=== PATIENT | male | born 1980 | race Caucasian/White ===

== ENCOUNTER 2016-08-17 00:27 | Emergency (ER) | payer OTHER, BC ==
[~2016-08-17] VITALS: Ht 193 cm; Wt 117.9 kg
[~2016-08-17 00:27] MED LIST: CLARITIN10 MG PO; CLONAZEPAM0.5 MG PO; IBU800 MG PO; MOTRIN800 MG PO; ZITHROMAX Z PA250 MG PO
[2016-08-17 01:16] LABS: BASO # 0.1 10*3/uL (0.0-0.1); BASO % 0.6 % (0.0-1.0); EOS # 0.1 10*3/uL (0.0-0.4); EOS % 1.2 % (1.0-4.0); HEMATOCRIT 45.5 % (42.0-52.0); HEMOGLOBIN 15.2 g/dl (14.0-18.0); LYMPH # 2.4 10*3/uL (1.3-4.4); LYMPH % 29.8 % (27.0-41.0); MEAN CELL VOLUME 87.8 fl (80.0-94.0); MEAN CORPUSCULAR HGB 29.3 pg (27.0-31.0); MEAN CORPUSCULAR HGB CONC 33.4 g/dl (33.0-37.0); MEAN PLATELET VOLUME 11.8 fl (9.6-12.3); MONO # 0.6 10*3/uL (0.1-1.0); MONO % 7.5 % (3.0-9.0); NEUT # 4.9 10*3/uL (2.3-7.9); NEUT % 60.7 % (47.0-73.0); PLATELET COUNT AUTOMATED 180 10*3/uL (130-400); RED BLOOD COUNT 5.18 10*6/uL (4.50-5.90); RED CELL DISTRI WIDTH 12.6 % (0-14.5); WHITE BLOOD COUNT 8.1 10*3/uL (4.8-10.8)
[2016-08-17 01:32] LABS: BUN 11 mg/dl (7-24); CARBON DIOXIDE 30 mmol/L (21-32); CHLORIDE 106 mmol/L (98-107); EST GLOM FILT AFRICAN AMERICAN > 60 ml/min; GLUCOSE 99 mg/dL (65-99); SODIUM 144 mmol/L (136-145)
[2016-08-17 01:33] LABS: URINE AMPHETAMINES < 1000 (1000ng/ml); URINE BARBITURATES < 200 (200ng/ml); URINE COCAINE < 300 (300ng/ml)
[2016-08-17 01:39] LABS: TROPONIN I < 0.015 ng/ml (<0.045)
== END 2016-08-17 02:20 | disposition home or self-care (01) ==
LOC: ED 00:27
PROVIDERS: Emergency Medicine Emergency Medical Services
DX: Z77.29 Contact with and (suspected) exposure to other hazardous substances (principal)

== ENCOUNTER 2018-03-24 22:21 | Emergency (ER) | payer BC ==
--- NOTE | ~2018-03-24 | EKG ---
[place], [place] ELECTROCARDIOGRAM REPORT NAME: TONI STEWART UNIT #: [id number] ROOM: DOCTOR: EPIPHANY DRAFT REPORT BIRTHDATE: [address] [facility] Test Date: 2018-03-24 Test Time: 22:22:44 Pat Name: TONI STEWART Department: ED Room: 5 Gender: M [employer] Technician: Georgia Knight : 1980 Requested By: DELIA METZ Order Number: [id number] Reading MD: Jt Mcdaniel MD Measurements Intervals [place] Rate: 75 P: 65 MS: 186 QRS: 46 QRSD: 107 T: 31 QT: 388 QTc: 434 Interpretive Statements Sinus rhythm Probable left atrial enlargement Baseline wander in lead(s) V3 Electronically Signed On 03-25-2018 15:24:17 PST by Jt Mcdaniel MD CM:EKGRPT:ELECTROCARDIOGRAM REPORT 1524 DELIA RAZA DRAFT REPORT DELAI METZ DO
--- NOTE | ~2018-03-24 | EKG ---
[place], [place] ELECTROCARDIOGRAM REPORT NAME: TONI STEWART UNIT #: [id number] ROOM: DOCTOR: EPIPHANY DRAFT REPORT BIRTHDATE: [birth year] [facility] Test Date: 2018-03-25 Test Time: 01:12:42 Pat Name: TONI STEWART Department: ED Room: 5 Gender: M Cpr Instructor: Georgia Knight : 1980 Requested By: DELIA METZ Order Number: [id number] Reading MD: Jt Mcdaniel MD Measurements Intervals [place] Rate: 60 P: 42 AL: 195 QRS: 7 QRSD: 96 T: 36 QT: 415 QTc: 415 Interpretive Statements Sinus rhythm Low voltage, precordial leads Compared to 03/24/2018 No significant change Electronically Signed On 03-25-2018 15:28:26 PST by Jt Mcdaniel MD CM:EKGRPT:ELECTROCARDIOGRAM REPORT [id number] 1528 DELIA RAZA DRAFT REPORT DELIA METZ DO
[2018-03-24 23:02] LABS: BASO # 0.1 10*3/uL (0.0-0.1); BASO % 0.7 % (0.0-1.0); EOS # 0.2 10*3/uL (0.0-0.4); EOS % 2.7 % (1.0-4.0); HEMATOCRIT 43.1 % (42.0-52.0); HEMOGLOBIN 14.8 g/dl (14.0-18.0); LYMPH # 2.7 10*3/uL (1.3-4.4); LYMPH % 32.8 % (27.0-41.0); MEAN CORPUSCULAR HGB 30.6 pg (27.0-31.0); MEAN CORPUSCULAR HGB CONC 34.3 g/dl (33.0-37.0); MEAN PLATELET VOLUME 11.4 fl (9.6-12.3); MONO # 0.6 10*3/uL (0.1-1.0); MONO % 7.3 % (3.0-9.0); NEUT # 4.6 10*3/uL (2.3-7.9); NEUT % 56.3 % (47.0-73.0); PLATELET COUNT AUTOMATED 203 10*3/uL (130-400); RED BLOOD COUNT 4.84 10*6/uL (4.50-5.90); RED CELL DISTRI WIDTH 12.8 % (0-14.5); WHITE BLOOD COUNT 8.2 10*3/uL (4.8-10.8)
[2018-03-24 23:14] LABS: ACT PARTIAL THROMBO TIME 25.2 SECONDS (20.8-31.5); INTERNATIONAL NORM RATIO 0.9 (2.0-3.5)
[2018-03-24 23:19] LABS: ALBUMIN 3.6 gm/dl (3.1-4.5); ALKALINE PHOSPHATASE 126 U/L (45-117); BUN 16 mg/dl (7-24); CHLORIDE 109 mmol/L (98-107); CREATININE 0.93 mg/dL (0.70-1.30); SGOT/AST 41 IU/L (3-35); SODIUM 142 mmol/L (136-145); TOTAL PROTEIN 7.1 gm/dL (6.4-8.2)
[2018-03-24 23:29] LABS: TROPONIN I < 0.015 ng/ml (<0.045)
[2018-03-24 23:30] LABS: SGPT/ALT 73 U/L (12-78)
[2018-03-25] MEDS ORDERED: CLARITIN10 MG PO (03:11)
[2018-03-25] MEDS ORDERED: AUGMENTIN 875875 MG PO (03:11)
== END 2018-03-25 03:21 | disposition home or self-care (01) ==
LOC: ED 22:21
PROVIDERS: Emergency Medicine
DX: R07.89 Other chest pain (principal); J32.9 Chronic sinusitis, unspecified; M79.602 Pain in left arm